=== PATIENT | female | born 1955 | race Caucasian/White ===

== ENCOUNTER → 2022-04-18 | Outpatient (CLI) | payer MEDICARE, OTHER, SELFPAY ==
--- NOTE | 2022-04-18 12:44 | CPS ---
Gave it to her as an outpt.
== END | disposition home or self-care (01) ==
LOC: PSN 12:21
PROVIDERS: Referring Provider Internal Medicine Critical Care Medicine; Visit Provider Internal Medicine Critical Care Medicine
DX: Z79.899 Other long term (current) drug therapy (principal)
CPT/HCPCS: 94667